=== PATIENT | male | born 1955 | race Caucasian/White ===

== ENCOUNTER 2019-04-22 16:13 | Observation (INO) | payer BC ==
[2019-04-22] MEDS ORDERED: methylPREDNISolone Sodium Succinate 125 MG/2 ML SDV IVPUSH ONE (16:16)
[2019-04-22] MEDS ORDERED: diphenhydrAMINE 50 MG/ML SDV IVPUSH ONE (16:16)
[2019-04-22] MEDS ORDERED: Famotidine 20 MG/2 ML SDV IVPUSH ONE (16:16)
[2019-04-22] MEDS ORDERED: EPINEPHrine 1 MG/ML SDV IM ONE ×2 (16:25→19:37)
--- NOTE | 2019-04-22 16:31 | EDM.PDOC ---
ED HPI GENERAL MEDICAL PROBLEM - General Chief Complaint: Allergic Reaction Stated Complaint: MOUTH SWOLLEN Time Seen by Provider: 04/22/19 16:20 Source of Information: Reports: Patient History Limitations: Reports: No Limitations - History of Present Illness INITIAL COMMENTS - FREE TEXT/NARRATIVE: This 63 year old male is admitted to the ED as a walk in with a chief complaint of swelling of his tongue that started around 12 noon today. He states that his doctor placed him on a new medication about one week ago (Lisinopril). The patient was asked several time and in different ways if he was having problems breathing or if he felt that his airway was feeling tight or trouble passing air through his trachea. The patient denies any chest pain or SOB. He insist that he is breathing fine. He denies any other problems at this time. Onset: Gradual Duration: Getting Worse (Tongue swelling) Location: Reports: Other (Tongue) Severity: Moderate (tongue swelling. He denies any problems of any kind breathing) Improves with: Reports: None Worsens with: Reports: None Associated Symptoms: Reports: No Other Symptoms tongue Pain Score (Numeric/FACES): 3 - Related Data Allergies Allergy/AdvReac Type Severity Reaction Status Date / Time No Known Allergies Allergy Verified 04/22/19 16:19 Home Meds: Home Meds Lisinopril/Hydrochlorothiazide [Lisinopril-Hctz 10-12.5 mg Tab] 1 tab PO DAILY 04/22/19 [History] [place]-3/DHA/Epa/Fish Oil [[place] 3 500 Softgel] 2 each PO DAILY 04/22/19 [History ] Past Medical History Cardiovascular History: Reports: Hypertension - Past Surgical History Musculoskeletal Surgical History: Reports: Other (See Below) Other Musculoskeletal Surgeries/Procedures:: Back sx Social & Family History - Family History Family Medical History: Noncontributory - Tobacco Use Smoking Status *Q: Current Every Day Smoker Years of Tobacco use: 40 Packs/Tins Daily: 1 - Recreational Drug Use Recreational Drug Use: No ED ROS ALLERGIC REACTION - Review of Systems Review Of Systems: See Below Constitutional: Reports: No Symptoms HEENT: Reports: Other (grossly swollen tongue) Cardiovascular: Reports: No Symptoms Endocrine: Reports: No Symptoms GI/Abdominal: Reports: No Symptoms : Reports: No Symptoms Musculoskeletal: Reports: No Symptoms Skin: Reports: No Symptoms Neurological: Reports: No Symptoms ED EXAM GENERAL NO PERIP PULSE - Physical Exam Exam: See Below Exam Limited By: No Limitations General Appearance: Alert, WD/WN, No Apparent Distress Ears: Normal External Exam, Normal Canal, Hearing Grossly Normal, Normal TMs Nose: Normal Inspection, Normal Mucosa, No Blood Throat/Mouth: Normal Lips, No Airway Compromise (He is able to talk without speaking except for the swelling of the tongue that is making speaking more difficult), Other (tongue is grossley swollen. I can just see the hard palet.) Head: No: Facial Swelling, Sinus Tenderness Neck: Normal Inspection, Other (No signs of induration or firmness of the submental area) Respiratory/Chest: No Respiratory Distress, Lungs Clear, Normal Breath Sounds, No Accessory Muscle Use, Chest Non-Tender Cardiovascular: Normal Peripheral Pulses, Regular Rate, Rhythm, No Edema, No JVD , No Murmur, No Rub GI/Abdominal: Normal Bowel Sounds, Soft, Non-Tender, No Distention, No Abnormal Bruit, No Mass (Male) Exam: Deferred Rectal (Males) Exam: Deferred Back Exam: Normal Inspection Extremities: Normal Inspection, Non-Tender, No Pedal Edema, Normal Capillary Refill Neurological: Alert, Oriented, CN II-XII Intact, Normal Reflexes, No Motor/ Sensory Deficits Skin Exam: Warm, Dry, Intact, Normal Color, No Rash Lymphatic: No Adenopathy Course - Vital Signs Text/Narrative:: I have re-evaluated this patient 12 times in the past three hours. The swelling of his tongue has gone down about 25-30%. He continues to deny any problems breathing or upper airway problems. I talked with Dr. Albarran at 7:28PM. I talked to her about giving the patient another 0.3mg of 1:1000 of epinephrine IM. She states that he should be fine in OBS/TELE. I agree as long as someone is watching him very closely. He will be admitted. The patient agrees with the plan. Last Recorded V/S: Last Vital Signs Temp 97.6 F 04/22/19 16:17 Pulse 81 04/22/19 19:14 Resp 16 04/22/19 19:14 BP 150/98 H 04/22/19 19:14 Pulse Ox 94 L 04/22/19 19:14 - Orders/Labs/Meds Labs: Laboratory Tests 04/22/19 04/22/19 Range/Units 16:24 16:24 WBC 11.68 H (4.0-11.0) K/uL RBC 4.83 (4.50-5.90) M/uL Hgb 14.6 (13.0-17.0) g/dL Hct 42.8 (38.0-50.0) % MCV 88.6 (80.0-98.0) fL MCH 30.2 (27.0-32.0) pg MCHC 34.1 (31.0-37.0) g/dL RDW Std Deviation 45.2 (28.0-62.0) fl RDW Coeff of [place] 14 (11.0-15.0) % Plt Count 370 (150-400) K/uL MPV 10.30 (7.40-12.00) fL Neut % (Auto) 64.7 (48.0-80.0) % Lymph % (Auto) 22.6 (16.0-40.0) % [place] % (Auto) 8.1 (0.0-15.0) % Eos % (Auto) 3.9 (0.0-7.0) % Baso % (Auto) 0.7 (0.0-1.5) % Neut # (Auto) 7.6 H (1.4-5.7) K/uL Lymph # (Auto) 2.6 H (0.6-2.4) K/uL [place] # (Auto) 1.0 H (0.0-0.8) K/uL Eos # (Auto) 0.5 (0.0-0.7) K/uL Baso # (Auto) 0.1 (0.0-0.1) K/uL Nucleated RBC % 0.0 /100WBC Nucleated RBCs # 0 K/uL Sodium 137 (136-148) mmol/L Potassium 3.7 (3.5-5.1) mmol/L Chloride 100 (98-107) mmol/L Carbon Dioxide 27.2 (21.0-32.0) mmol/L BUN 19 H (7.0-18.0) mg/dL Creatinine 1.0 (0.8-1.3) mg/dL Est Cr Clr Drug Dosing 78.07 mL/min Estimated GFR (MDRD) > 60.0 ml/min Glucose 74 (74-106) mg/dL Calcium 9.2 (8.5-10.1) mg/dL Magnesium 2.2 (1.8-2.4) mg/dL Total Bilirubin 0.3 (0.2-1.0) mg/dL AST 13 L (15-37) IU/L ALT 21 (14-63) IU/L Alkaline Phosphatase 95 (46-116) U/L Total Protein 7.9 (6.4-8.2) g/dL Albumin 4.0 (3.4-5.0) g/dL Globulin 3.9 (2.6-4.0) g/dL Albumin/Globulin Ratio 1.0 (0.9-1.6) Meds: Medications Discontinued Medications Generic Name Dose Route Start Last Admin Trade Name Freq PRN Reason Stop Dose Admin Diphenhydramine HCl 50 mg 04/22/19 16:16 04/22/19 16:23 Benadryl IVPUSH 04/22/19 16:17 50 mg ONETIME ONE Administration Epinephrine HCl 0.3 mg 04/22/19 16:25 04/22/19 16:35 Adrenalin IM 04/22/19 16:26 0.3 mg ONETIME ONE Administration Famotidine 20 mg 04/22/19 16:16 04/22/19 16:23 Pepcid IVPUSH 04/22/19 16:17 20 mg ONETIME ONE Administration Methylprednisolone Sodium Succinate 125 mg 04/22/19 16:16 04/22/19 16:23 Solu-Medrol IVPUSH 04/22/19 16:17 125 mg ONETIME ONE Administration Departure - Departure Time of Disposition: 19:38 Disposition: Refer to Observation Condition: Good Clinical Impression: Angioedema Qualifiers: Encounter type: initial encounter Qualified Code(s): T78.3XXA - Angioneurotic edema, initial encounter - Discharge Information *PRESCRIPTION DRUG MONITORING PROGRAM REVIEWED*: Yes *COPY OF PRESCRIPTION DRUG MONITORING REPORT IN PATIENT FLAQUITA: Yes Referrals: PCP,None [Primary Care Provider] - Sepsis Event Note - Evaluation Sepsis Screening Result: No Definite Risk - Focused Exam Vital Signs: Vital Signs Temp Pulse Resp BP Pulse Ox 04/22/19 19:14 81 16 150/98 H 94 L 04/22/19 17:20 92 130/77 94 L 04/22/19 16:17 97.6 F 91 16 164/94 H 96 Date Exam was Performed: 04/22/19 Time Exam was Performed: 19:32
[2019-04-22 17:28] LABS: BLOOD UREA NITROGEN,BUN 19 mg/dL (7.0-18.0); CARBON DIOXIDE,CO2 27.2 mmol/L (21.0-32.0); CHLORIDE,CL 100 mmol/L (98-107); GLUCOSE RANDOM 74 mg/dL (74-106); POTASSIUM,K 3.7 mmol/L (3.5-5.1); SODIUM,NA 137 mmol/L (136-148)
--- NOTE | 2019-04-22 18:05 | CR ---
Chest: Portable view of the chest was obtained. Comparison: No prior chest x-ray. Heart size is normal. Tortuous thoracic aorta is seen. Lungs are clear with no acute parenchymal change. Impression: 1. Nothing acute is seen on portable chest x-ray. Diagnostic code #1 This report was dictated in MDT
[2019-04-22] MEDS ORDERED: Albuterol/Ipratropium 3.0-0.5 MG/3 ML Neb Soln NEB PRN (20:07)
[2019-04-22] MEDS: methylPREDNISolone Sodium Succinate 40 MG/1 ML SDV IVPUSH SCH (23:53)
--- NOTE | 2019-04-23 08:27 | PCM.HP.2 ---
<Mt Young M - Last Filed: 04/23/19 09:38> H&P History of Present Illness - General Date of Service: 04/23/19 Admit Problem/Dx: Admission Diagnosis/Problem Admission Diagnosis/Problem Angioedema Source of Information: Patient History Limitations: Reports: No Limitations - History of Present Illness Initial Comments - Free Text/Narative: 63-year-old male presents with tongue swelling that started yesterday at noon. Patient has a PMH of hypertension. He reports that he ate a pretzel at a truck stop approximately 2 hours before. He was recently started on lisinopril 1 week ago. Patient reports that he did have a similar episode of acute tongue swelling approximately 1 month ago which was before he even started the lisinopril. Patient's dentist was contacted by his yesterday after he was admitted to hospital and dentist said patient could have reaction to glue in his dentures that he started wearing in February 2019 and was advised to stop wearing them. He has not introduced any new foods in his diet recently. Apart from lisinopril, no new medication changes. Patient denies fevers, chills, blurry vision, sore throat, cough, shortness of breath, trouble swallowing, chest pain, n/v/d, abdominal pain, blood in stool, blood in urine, numbness or tingling in extremities. In the ER, patient was given epinephrine, solumedrol, pepcid and benadryl. CBC, CMP and CXR were unremarkable. Patient admitted for further evaluation. tongue Pain Score (Numeric/FACES): 0 - Related Data Allergies/Adverse Reactions: Allergies Allergy/AdvReac Type Severity Reaction Status Date / Time No Known Allergies Allergy Verified 04/22/19 16:19 Home Medications: Home Meds [place]-3/DHA/Epa/Fish Oil [[place] 3 500 Softgel] 2 each PO DAILY 04/22/19 [History ] amLODIPine [Norvasc] 5 mg PO DAILY 30 Days #30 tab 04/23/19 [Rx] predniSONE [Prednisone] 40 mg PO DAILY 3 Days #6 tablet 04/23/19 [Rx] Past Medical History Cardiovascular History: Reports: Hypertension - Infectious Disease History Infectious Disease History: Reports: Chicken Pox, Measles - Past Surgical History Cardiovascular Surgical History: Reports: None Musculoskeletal Surgical History: Reports: Other (See Below) Other Musculoskeletal Surgeries/Procedures:: Back sx x3 ruptured disc Social & Family History - Family History Family Medical History: Noncontributory - Tobacco Use Smoking Status *Q: Current Every Day Smoker Years of Tobacco use: 40 Packs/Tins Daily: 1 Used Tobacco, but Quit: No Second Hand Smoke Exposure: Yes - Caffeine Use Caffeine Use: Reports: Coffee, Soda - Alcohol Use Days Per Week of Alcohol Use: 4 Number of Drinks Per Day: 3 Total Drinks Per Week: 12 Date of Last Drink: 04/21/19 Time of Last Drink: 16:30 - Recreational Drug Use Recreational Drug Use: No H&P Review of Systems - Review of Systems: Review Of Systems: Comprehensive ROS is negative, except as noted in HPI. Exam - Exam Exam: See Below - Vital Signs Vital Signs: Last Vital Signs Temp 97.7 F 04/23/19 04:00 Pulse 82 04/23/19 04:00 Resp 18 04/23/19 04:00 BP 118/65 04/23/19 04:00 Pulse Ox 92 L 04/23/19 04:00 Weight: 89.811 kg - Exam General: Alert, Oriented, Cooperative, Other (NAD) HEENT: Conjunctiva Clear, EOMI, Hearing Intact, Posterior Pharynx Clear, Pupils Equal, Pupils Reactive, Other (Tongue is non-edematous) Neck: Supple, Trachea Midline Lungs: Clear to Auscultation, Normal Respiratory Effort Cardiovascular: Regular Rate, Regular Rhythm GI/Abdominal Exam: Normal Bowel Sounds, Soft, Non-Tender, No Distention Extremities: Normal Inspection, No Pedal Edema Peripheral Pulses: 2+: Radial (L), Radial (R) Skin: Warm, Dry, Intact Neurological: Cranial Nerves Intact, Strength Equal Bilateral, Normal Speech, Normal Tone Neuro Extensive - Mental Status: Alert, Oriented x3, Normal Mood/Affect Psychiatric: Alert, Normal Affect, Normal Mood - Patient Data Lab Results Last 24 hrs: Laboratory Results - last 24 hr 04/22/19 04/22/19 04/23/19 Range/Units 16:24 16:24 06:03 WBC 11.68 H 11.57 H (4.0-11.0) K/uL RBC 4.83 4.78 (4.50-5.90) M/uL Hgb 14.6 14.3 (13.0-17.0) g/dL Hct 42.8 42.6 (38.0-50.0) % MCV 88.6 89.1 (80.0-98.0) fL MCH 30.2 29.9 (27.0-32.0) pg MCHC 34.1 33.6 (31.0-37.0) g/dL RDW Std Deviation 45.2 44.9 (28.0-62.0) fl RDW Coeff of [place] 14 14 (11.0-15.0) % Plt Count 370 382 (150-400) K/uL MPV 10.30 9.70 (7.40-12.00) fL Neut % (Auto) 64.7 88.2 H (48.0-80.0) % Lymph % (Auto) 22.6 9.9 L (16.0-40.0) % [place] % (Auto) 8.1 1.8 (0.0-15.0) % Eos % (Auto) 3.9 0.0 (0.0-7.0) % Baso % (Auto) 0.7 0.1 (0.0-1.5) % Neut # (Auto) 7.6 H 10.2 H (1.4-5.7) K/uL Lymph # (Auto) 2.6 H 1.2 (0.6-2.4) K/uL [place] # (Auto) 1.0 H 0.2 (0.0-0.8) K/uL Eos # (Auto) 0.5 0.0 (0.0-0.7) K/uL Baso # (Auto) 0.1 0.0 (0.0-0.1) K/uL Nucleated RBC % 0.0 0.0 /100WBC Nucleated RBCs # 0 0 K/uL Sodium 137 (136-148) mmol/L Potassium 3.7 (3.5-5.1) mmol/L Chloride 100 (98-107) mmol/L Carbon Dioxide 27.2 (21.0-32.0) mmol/L BUN 19 H (7.0-18.0) mg/dL Creatinine 1.0 (0.8-1.3) mg/dL Est Cr Clr Drug Dosing 78.07 mL/min Estimated GFR (MDRD) > 60.0 ml/min Glucose 74 (74-106) mg/dL Calcium 9.2 (8.5-10.1) mg/dL Magnesium 2.2 (1.8-2.4) mg/dL Total Bilirubin 0.3 (0.2-1.0) mg/dL AST 13 L (15-37) IU/L ALT 21 (14-63) IU/L Alkaline Phosphatase 95 (46-116) U/L Total Protein 7.9 (6.4-8.2) g/dL Albumin 4.0 (3.4-5.0) g/dL Globulin 3.9 (2.6-4.0) g/dL Albumin/Globulin Ratio 1.0 (0.9-1.6) Result Diagrams: 04/23/19 06:03 04/22/19 16:24 Sepsis Event Note - Evaluation Sepsis Screening Result: No Definite Risk - Focused Exam Vital Signs: Vital Signs Temp Pulse Resp BP Pulse Ox 04/23/19 04:00 97.7 F 82 18 118/65 92 L 04/23/19 00:00 98.8 F 79 18 134/79 93 L 04/22/19 20:53 98.3 F 89 18 132/78 96 04/22/19 20:46 97.8 F 88 18 141/85 H 94 L Date Exam was Performed: 04/23/19 Time Exam was Performed: 09:38 Problem List Initiated/Reviewed/Updated: Yes Orders Last 24hrs: Active Orders 24 hr Category Date Time Status Admission Status [Patient Status] [ADT] Stat ADT 04/22/19 20:06 Active Ambulate [RC] ASDIRECTED Care 04/22/19 20:07 Active Antiembolic Devices [RC] PER UNIT ROUTINE Care 04/22/19 20:08 Active Oxygen Therapy [RC] PRN Care 04/22/19 20:07 Active Pulse Oximetry [RC] CONTINUOUS Care 04/22/19 20:07 Active RT Aerosol Therapy [RC] ASDIRECTED Care 04/22/19 20:08 Active Telemetry Monitoring [Cardiac Monitoring] [RC] Q8H Care 04/22/19 20:55 Active VTE/DVT Education [RC] PER UNIT ROUTINE Care 04/22/19 20:07 Active Vital Signs [RC] Q4H Care 04/22/19 20:07 Active Albuterol/Ipratropium [DuoNeb 3.0-0.5 MG/3 ML] Med 04/22/19 20:07 Active 3 ml NEB Q4HRRT PRN Famotidine [Pepcid] Med 04/23/19 09:00 Active 20 mg IVPUSH DAILY methylPREDNISolone Sod Succ [Solu-MEDROL] Med 04/23/19 00:00 Active 40 mg IVPUSH Q8H Sequential Compression Device [OM.PC] Per Unit Routine Oth 04/22/19 20:07 Ordered Resuscitation Status Routine Resus Stat 04/22/19 20:07 Ordered Medication Orders Albuterol/Ipratropium (Duoneb 3.0-0.5 Mg/3 Ml) 3 ml NEB Q4HRRT PRN PRN Reason: Shortness Of Breath/wheezing Famotidine (Pepcid) 20 mg IVPUSH DAILY ESVIN Methylprednisolone Sodium Succinate (Solu-Medrol) 40 mg IVPUSH Q8H ESVIN Last Admin: 04/22/19 23:53 Dose: 40 mg Assessment/Plan Comment:: Assessment and Plan: 1. Angioedema secondary to drug reaction vs dentures: - Patient admitted to med/surg obs. Patient started on IV solumedrol 40 mg q8 and IV famotidine 20 mg qd. Duonebs q4 prn. Patient reports that his tongue swelling has improved significantly since yesterday and has now returned to his baseline. He was discharged this morning in stable condition with instructions to discontinue lisinopril and his dentures. Patient started on amlodipine 5 mg qd and given script for prednisone 40 mg qd x 3 days. Advised to follow-up with his PCP for blood pressure monitoring and also his dentist on discharge. <Andria Albarran - Last Filed: 05/06/19 15:19> H&P History of Present Illness - General Admit Problem/Dx: Admission Diagnosis/Problem Admission Diagnosis/Problem Angioedema Exam - Vital Signs Vital Signs: Last Vital Signs Temp 36.5 C 04/23/19 07:40 Pulse 82 04/23/19 07:40 Resp 18 04/23/19 07:40 BP 121/74 04/23/19 07:40 Pulse Ox 94 L 04/23/19 07:40 - Patient Data Result Diagrams: 04/23/19 06:03 04/22/19 16:24 Assessment/Plan Comment:: I performed history and physical exam of this patient independently and Agree with the above outlined management plan that was discussed with the resident in detail.
[2019-04-23] MEDS: methylPREDNISolone Sodium Succinate 40 MG/1 ML SDV IVPUSH SCH (08:36)
[2019-04-23] MEDS ORDERED: Famotidine 20 MG/2 ML SDV IVPUSH SCH (09:00)
== END 2019-04-23 11:45 | disposition home or self-care (01) ==
LOC: MW.ED 16:13 → MW.MS 20:06
PROVIDERS: ADMIT Student in an Organized Health Care Education/Training Program; ATTEND Student in an Organized Health Care Education/Training Program
DX: T78.3XXA Angioneurotic edema, initial encounter (principal); I10 Essential (primary) hypertension; F17.210 Nicotine dependence, cigarettes, uncomplicated; Z79.899 Other long term (current) drug therapy
CPT/HCPCS: 36415; 71045; 80053; 83735; 85025; 96372; 96374; 96375; 99284; J0171; J1200; J2920; J2930; S0028; 96376; G0378; J3490

== ENCOUNTER 2019-05-31 11:32 | Observation (INO) | payer BC ==
--- NOTE | 2019-05-31 12:18 | EDM.PDOC ---
ED HPI GENERAL MEDICAL PROBLEM - General Chief Complaint: General Stated Complaint: SWOLLEN TONGUE Time Seen by Provider: 05/31/19 12:18 Source of Information: Reports: Patient History Limitations: Reports: No Limitations - History of Present Illness INITIAL COMMENTS - FREE TEXT/NARRATIVE: This 63 year old male presents to the ED today with a chief complaint of gross swelling of the right side of his tongue at 9:00AM. He had a similar problem on April 22, 2019 at which time he was admitted for a day and discharged with a Rx for Prednisone for three days. He states that his tongue went totally down. The cause was never found. He states that the only difference is that this time the swelling started on the right side of his tongue. As like before, he denies any trouble breathing or any airway problems. Onset: Today (9:00 AM) denies pain Pain Score (Numeric/FACES): 0 - Related Data Allergies Allergy/AdvReac Type Severity Reaction Status Date / Time [id number] Reductase AdvReac Unknown Facial Unverified 05/31/19 12:00 Inhibitor Swelling Home Meds: Home Meds [place]-3/DHA/Epa/Fish Oil [[place] 3 500 Softgel] 2 each PO DAILY 04/22/19 [History ] amLODIPine [Norvasc] 5 mg PO DAILY 30 Days #30 tab 04/23/19 [Rx] predniSONE [Prednisone] 40 mg PO DAILY 3 Days #6 tablet 04/23/19 [Rx] Past Medical History - Past Health History Medical/Surgical History: Denies Medical/Surgical History Cardiovascular History: Reports: Hypertension Psychiatric History: Reports: None Hematologic History: Reports: None Immunologic History: Reports: None Oncologic (Cancer) History: Reports: None - Infectious Disease History Infectious Disease History: Reports: None - Past Surgical History Cardiovascular Surgical History: Reports: None Musculoskeletal Surgical History: Reports: Other (See Below) Other Musculoskeletal Surgeries/Procedures:: Back sx x3 ruptured disc Social & Family History - Family History Family Medical History: Noncontributory - Tobacco Use Smoking Status *Q: Current Every Day Smoker Years of Tobacco use: 45 Packs/Tins Daily: 0.5 - Caffeine Use Caffeine Use: Reports: Coffee - Recreational Drug Use Recreational Drug Use: No ED ROS GENERAL - Review of Systems Review Of Systems: See Below Constitutional: Reports: No Symptoms HEENT: Reports: Other (tongue swelling) Respiratory: Reports: No Symptoms Cardiovascular: Reports: No Symptoms Endocrine: Reports: No Symptoms GI/Abdominal: Reports: No Symptoms : Reports: No Symptoms Musculoskeletal: Reports: No Symptoms Skin: Reports: No Symptoms Neurological: Reports: No Symptoms ED EXAM, GENERAL - Physical Exam Exam: See Below Exam Limited By: No Limitations General Appearance: Alert, WD/WN, No Apparent Distress Ears: Normal External Exam, Normal Canal, Normal TMs Nose: Normal Inspection, Normal Mucosa Throat/Mouth: Normal Voice, No Airway Compromise, Other (the right side of his tongue is grossly swollen. The left side of the tongue is only slightly swollen.) Head: Atraumatic, Normocephalic Neck: Normal Inspection, Supple, Non-Tender Respiratory/Chest: No Respiratory Distress, Lungs Clear, Normal Breath Sounds, Chest Non-Tender Cardiovascular: Normal Peripheral Pulses, Regular Rate, Rhythm, No Edema, No Murmur GI/Abdominal: Normal Bowel Sounds, Soft, Non-Tender (Male) Exam: Deferred Rectal (Males) Exam: Deferred Back Exam: Normal Inspection, Full Range of Motion Extremities: Normal Inspection Neurological: Alert, Oriented (times 4), CN II-XII Intact, Normal Reflexes, No Motor/Sensory Deficits Psychiatric: Normal Affect Skin Exam: Warm, Dry, Intact, Normal Color, No Rash Lymphatic: No Adenopathy Course - Vital Signs Text/Narrative:: The patient tongue has improved but is still very swollen. I talked with Dr. Albarran regarding admission for further observation. She is will to admit him to OBS/TELE and has requested that he receives epinephrine 0.3mg of a 1/1,000 IM. I discussed admission to the patient and he agrees with the admission plan. Last Recorded V/S: Last Vital Signs Temp 97.0 F 05/31/19 11:55 Pulse 74 05/31/19 15:17 Resp 17 05/31/19 15:17 BP 155/86 H 05/31/19 15:17 Pulse Ox 97 05/31/19 15:17 - Orders/Labs/Meds Orders: Active Orders 24 hr Category Date Time Status B-TYPE NATRIURETIC PEPTIDE,BNP [CHEM] Stat Lab 05/31/19 15:29 Ordered CBC WITH AUTO DIFF [HEME] Stat Lab 05/31/19 15:16 Ordered Sodium Chloride 0.9% [Normal Saline] 500 ml Med 05/31/19 13:00 Active IV .BOLUS Medication Orders Sodium Chloride (Normal Saline) 500 mls @ 500 mls/hr IV .BOLUS ESVIN Last Admin: 05/31/19 13:10 Dose: 500 mls/hr Meds: Medications Generic Name Dose Route Start Last Admin Trade Name oY PRN Reason Stop Dose Admin Sodium Chloride 500 mls @ 500 mls/hr 05/31/19 13:00 05/31/19 13:10 Normal Saline IV 500 mls/hr .BOLUS ESVIN Administration Discontinued Medications Generic Name Dose Route Start Last Admin Trade Name Yo PRN Reason Stop Dose Admin Diphenhydramine HCl 25 mg 05/31/19 12:50 05/31/19 13:12 Benadryl IVPUSH 05/31/19 12:51 25 mg ONETIME ONE Administration Epinephrine HCl 0.3 mg 05/31/19 15:27 Adrenalin IM 05/31/19 15:28 ONETIME ONE Famotidine 20 mg 05/31/19 12:49 05/31/19 13:11 Pepcid PO 05/31/19 12:50 20 mg ONETIME ONE Administration Prednisone 60 mg 05/31/19 12:48 05/31/19 13:11 Prednisone PO 05/31/19 12:49 60 mg ONETIME ONE Administration Departure - Departure Time of Disposition: 15:34 Disposition: Refer to Observation Condition: Fair Clinical Impression: Tongue swelling Angioedema Qualifiers: Encounter type: subsequent encounter Qualified Code(s): T78.3XXD - Angioneurotic edema, subsequent encounter - Discharge Information *PRESCRIPTION DRUG MONITORING PROGRAM REVIEWED*: Yes *COPY OF PRESCRIPTION DRUG MONITORING REPORT IN PATIENT FLAQUITA: Yes Referrals: Maris Pearce NP [Primary Care Provider] - Sepsis Event Note - Evaluation Sepsis Screening Result: No Definite Risk - Focused Exam Vital Signs: Vital Signs Temp Pulse Resp BP Pulse Ox 05/31/19 15:17 74 17 155/86 H 97 05/31/19 11:55 97.0 F 74 16 180/107 H 98 Date Exam was Performed: 05/31/19 Time Exam was Performed: 15:30 - My Orders Last 24 Hours: My Active Orders 05/31/19 13:00 Sodium Chloride 0.9% [Normal Saline] 500 ml IV .BOLUS 05/31/19 15:16 CBC WITH AUTO DIFF [HEME] Stat 05/31/19 15:29 B-TYPE NATRIURETIC PEPTIDE,BNP [CHEM] Stat - Assessment/Plan Last 24 Hours: My Active Orders 05/31/19 13:00 Sodium Chloride 0.9% [Normal Saline] 500 ml IV .BOLUS 05/31/19 15:16 CBC WITH AUTO DIFF [HEME] Stat 05/31/19 15:29 B-TYPE NATRIURETIC PEPTIDE,BNP [CHEM] Stat
[2019-05-31] MEDS ORDERED: predniSONE 10 MG Tab PO ONE (12:48)
[2019-05-31] MEDS ORDERED: Famotidine 20 MG Tab PO ONE (12:49)
[2019-05-31] MEDS ORDERED: diphenhydrAMINE 50 MG/ML SDV IVPUSH ONE (12:50)
[2019-05-31] MEDS ORDERED: Sodium Chloride 0.9% 500 ML IV SCH (13:00)
[2019-05-31] MEDS ORDERED: EPINEPHrine 1 MG/ML SDV IM ONE (15:27)
[2019-05-31 16:50] LABS: BLOOD UREA NITROGEN,BUN 11 mg/dL (7.0-18.0); CARBON DIOXIDE,CO2 29.9 mmol/L (21.0-32.0); CHLORIDE,CL 104 mmol/L (98-107); GLUCOSE RANDOM 106 mg/dL (74-106); POTASSIUM,K 4.6 mmol/L (3.5-5.1); SODIUM,NA 141 mmol/L (136-148)
[2019-05-31] MEDS ORDERED: Lactated Ringers 1,000 ML IV SCH (17:15)
[2019-05-31] MEDS: diphenhydrAMINE 50 MG/ML SDV IVPUSH SCH ×2 (18:14→23:04)
--- NOTE | 2019-05-31 19:27 | PCM.HP.2 ---
H&P History of Present Illness - General Date of Service: 05/31/19 Admit Problem/Dx: Admission Diagnosis/Problem Admission Diagnosis/Problem Tongue swelling - History of Present Illness Initial Comments - Free Text/Narative: This 63 year old male presents to the ED today with a chief complaint of swelling of the right side of his tongue that started this AM while he was at home resting. He had a similar problem on April 22, 2019 at which time he was admitted for a day and discharged with a Rx for Prednisone for three days. He had no episodes ever since. It was attributed to his denture cleaning solution vs the denture glue, he had stopped using those products. He states he was also told he might be allergic to the acrylic in the denture teeth. He denies any trouble breathing or any airway problems. He has an Epi pen at home. Patient received steroids, Benadryl, epinephrine in the ER, and was admitted to hospital for overnight observation. Onset of Symptoms: Reports: Today, Sudden Duration of Symptoms: Reports: Hour(s): Location: Reports: Head Severity: Moderate Improves with: Reports: None Worsens with: Reports: None Associated Symptoms: Denies: Confusion, Chest Pain, Fever/Chills, Headaches, Loss of Appetite, Seizure, Shortness of Breath denies pain Pain Score (Numeric/FACES): 0 - Related Data Allergies/Adverse Reactions: Allergies Allergy/AdvReac Type Severity Reaction Status Date / Time [id number] Reductase AdvReac Unknown Facial Verified 05/31/19 17:33 Inhibitor Swelling Home Medications: Home Meds [place]-3/DHA/Epa/Fish Oil [[place] 3 500 Softgel] 1 each PO BID 04/22/19 [History] Aspirin [Aspirin EC] 81 mg PO BEDTIME 05/31/19 [History] predniSONE [Prednisone] 20 mg PO DAILY #5 tablet 06/01/19 [Rx] Past Medical History - Past Health History Medical/Surgical History: Denies Medical/Surgical History Cardiovascular History: Reports: Hypertension Respiratory History: Reports: Sleep Apnea Other Respiratory History: on Home CPAP Psychiatric History: Reports: None Hematologic History: Reports: None Immunologic History: Reports: None Oncologic (Cancer) History: Reports: None Dermatologic History: Reports: Angiodema - Infectious Disease History Infectious Disease History: Reports: None - Past Surgical History Cardiovascular Surgical History: Reports: None Respiratory Surgical History: Reports: None Musculoskeletal Surgical History: Reports: Other (See Below) Other Musculoskeletal Surgeries/Procedures:: Back sx x3 ruptured disc Social & Family History - Family History Family Medical History: Noncontributory - Tobacco Use Smoking Status *Q: Current Every Day Smoker Years of Tobacco use: 45 Packs/Tins Daily: 1 Month/Year Tobacco Last Used: Current Second Hand Smoke Exposure: No - Caffeine Use Caffeine Use: Reports: Coffee, Soda, Tea - Alcohol Use Days Per Week of Alcohol Use: 3 Number of Drinks Per Day: 3 Total Drinks Per Week: 9 Date of Last Drink: 05/29/19 Time of Last Drink: 18:00 - Recreational Drug Use Recreational Drug Use: No H&P Review of Systems - Review of Systems: Review Of Systems: See Below General: Denies: Fever, Chills HEENT: Reports: Other (toungue swelling ). Denies: Glasses, Headaches, Rhinitis , Post Nasal Drip, Sore Throat, Vertigo, Visual Changes Cardiovascular: Denies: Chest Pain, Palpitations Gastrointestinal: Denies: Abdominal Pain, Anorexia, Decreased Appetite, Nausea, Stool Incontinence Genitourinary: Denies: Dysuria, Frequency, Burning Musculoskeletal: Denies: Neck Pain, Shoulder Pain, Arm Pain Skin: Denies: Cyanosis, Jaundice, Mottled Psychiatric: Denies: Confusion, Depression, Mood Lability Exam - Exam Exam: See Below - Vital Signs Vital Signs: Last Vital Signs Temp 36.2 C 05/31/19 16:51 Pulse 76 05/31/19 16:51 Resp 16 05/31/19 16:51 BP 147/85 H 05/31/19 16:51 Pulse Ox 96 05/31/19 16:51 Weight: 92.1 kg - Exam General: Alert, Oriented HEENT: Conjunctiva Clear, Mucosa Moist & [place], Other (right side of the toungue is swollen ) Neck: Supple, Trachea Midline Lungs: Clear to Auscultation, Normal Respiratory Effort Cardiovascular: Regular Rate, Regular Rhythm, Normal S1, Normal S2 - Patient Data Lab Results Last 24 hrs: Laboratory Results - last 24 hr 05/31/19 05/31/19 05/31/19 Range/Units 15:24 15:24 15:24 WBC 18.42 H (4.0-11.0) K/uL RBC 4.90 (4.50-5.90) M/uL Hgb 14.6 (13.0-17.0) g/dL Hct 44.4 (38.0-50.0) % MCV 90.6 (80.0-98.0) fL MCH 29.8 (27.0-32.0) pg MCHC 32.9 (31.0-37.0) g/dL RDW Std Deviation 45.9 (28.0-62.0) fl RDW Coeff of [place] 14 (11.0-15.0) % Plt Count 346 (150-400) K/uL MPV 9.40 (7.40-12.00) fL Neut % (Auto) 87.4 H (48.0-80.0) % Lymph % (Auto) 7.8 L (16.0-40.0) % [place] % (Auto) 3.3 (0.0-15.0) % Eos % (Auto) 1.2 (0.0-7.0) % Baso % (Auto) 0.3 (0.0-1.5) % Neut # (Auto) 16.1 H (1.4-5.7) K/uL Lymph # (Auto) 1.4 (0.6-2.4) K/uL [place] # (Auto) 0.6 (0.0-0.8) K/uL Eos # (Auto) 0.2 (0.0-0.7) K/uL Baso # (Auto) 0.1 (0.0-0.1) K/uL Nucleated RBC % 0.0 /100WBC Nucleated RBCs # 0 K/uL Sodium 141 (136-148) mmol/L Potassium 4.6 (3.5-5.1) mmol/L Chloride 104 (98-107) mmol/L Carbon Dioxide 29.9 (21.0-32.0) mmol/L BUN 11 (7.0-18.0) mg/dL Creatinine 1.1 (0.8-1.3) mg/dL Est Cr Clr Drug Dosing 70.97 mL/min Estimated GFR (MDRD) > 60.0 ml/min Glucose 106 (74-106) mg/dL Calcium 8.8 (8.5-10.1) mg/dL B-Natriuretic Peptide 14 (<100) PG/ML Result Diagrams: 06/01/19 06:08 05/31/19 15:24 Sepsis Event Note - Evaluation Sepsis Screening Result: No Definite Risk - Focused Exam Vital Signs: Vital Signs Temp Pulse Resp BP Pulse Ox 05/31/19 16:51 36.2 C 76 16 147/85 H 96 05/31/19 15:17 74 17 155/86 H 97 05/31/19 11:55 36.1 C 74 16 180/107 H 98 Date Exam was Performed: 06/01/19 Time Exam was Performed: 12:14 - Problem List (1) Angioedema SNOMED Code(s): 39122717 ICD Code: T78.3XXA - ANGIONEUROTIC EDEMA, INITIAL ENCOUNTER Status: Acute Qualifiers: Encounter type: subsequent encounter Qualified Code(s): T78.3XXD - Angioneurotic edema, subsequent encounter Problem List Initiated/Reviewed/Updated: Yes Orders Last 24hrs: Active Orders 24 hr Category Date Time Status Admission Status [Patient Status] [ADT] Stat ADT 05/31/19 15:36 Active Ambulate [RC] ASDIRECTED Care 05/31/19 16:42 Active Oxygen Therapy [RC] ASDIRECTED Care 05/31/19 16:51 Active Pulse Oximetry [RC] ASDIRECTED Care 05/31/19 16:50 Active Telemetry Monitoring [Cardiac Monitoring] [RC] . Care 05/31/19 16:28 Active DIRECTED Vital Signs [RC] Q4H Care 05/31/19 20:00 Active Nothing per Oral Now Diet [DIET] Diet 06/01/19 Breakfast Active Famotidine [Pepcid] Med 05/31/19 21:00 Active 20 mg PO BID Lactated Ringers [Ringers, Lactated] 1,000 ml Med 05/31/19 17:15 Active IV ASDIRECTED Sodium Chloride 0.9% [Normal Saline] 500 ml Med 05/31/19 13:00 Active IV .BOLUS diphenhydrAMINE [Benadryl] Med 05/31/19 17:00 Active 25 mg IVPUSH Q6H methylPREDNISolone Sod Succ [Solu-MEDROL] Med 05/31/19 22:00 Active 60 mg IVPUSH Q12H Medication Orders Diphenhydramine HCl (Benadryl) 25 mg IVPUSH Q6H [facility] Last Admin: 05/31/19 18:14 Dose: 25 mg Famotidine (Pepcid) 20 mg PO BID [facility] Sodium Chloride (Normal Saline) 500 mls @ 500 mls/hr IV .BOLUS [facility] Last Admin: 05/31/19 13:10 Dose: 500 mls/hr Lactated Ringer's (Ringers, Lactated) 1,000 mls @ 125 mls/hr IV ASDIRECTED [facility] Last Admin: 05/31/19 18:15 Dose: 125 mls/hr Methylprednisolone Sodium Succinate (Solu-Medrol) 60 mg IVPUSH Q12H [facility] Assessment/Plan Comment:: 63 y/o Admitted for Angioedema, unsure of trigger, could be idiopathic Will start IV steroids, Benadryl, and Pepcid Airway is patent, swelling has improved Start soft diet continue to monitor overnight Possible dc tomorrow
[2019-05-31] MEDS: Famotidine 20 MG Tab PO SCH (21:31)
[2019-05-31] MEDS: methylPREDNISolone Sodium Succinate 125 MG/2 ML SDV IVPUSH SCH (21:32)
[2019-06-01] MEDS: diphenhydrAMINE 50 MG/ML SDV IVPUSH SCH ×2 (05:08→10:18)
[2019-06-01] MEDS: Famotidine 20 MG Tab PO SCH (09:17)
[2019-06-01] MEDS: methylPREDNISolone Sodium Succinate 125 MG/2 ML SDV IVPUSH SCH (09:55)
--- NOTE | 2019-06-01 10:07 | PCM.DCSUM1 ---
Discharge Summary - Hospital Course HPI Initial Comments: This 63 year old male presents to the ED today with a chief complaint of swelling of the right side of his tongue that started this AM while he was at home resting. He had a similar problem on April 22, 2019 at which time he was admitted for a day and discharged with a Rx for Prednisone for three days. He had no episodes ever since. It was attributed to his denture cleaning solution vs the denture glue, he had stopped using those products. He states he was also told he might be allergic to the acrylic in the denture teeth. He denies any trouble breathing or any airway problems. He has an Epi pen at home. Patient received steroids, Benadryl, epinephrine in the ER, and was admitted to hospital for overnight observation. Patient was started on IV steroids, IV Benedryl and pepcid, next AM patients swelling had resolved, he was keen to leave [facility]. His tele around 845 am showed frequent PVCs, his mg was checked which was normal, his PVCs resolved after 20 min. Patient was informed about his borderline HTN and PVCs, patient wasn't keen on starting any meds for his HTN as of now, Patient was medically stable for dc, He was recommended to fu with his PCP and check his BP regularly at home. - Discharge Data Discharge Date: 06/01/19 Discharge Disposition: Home, Self-Care 01 Condition: Fair - Referral to Home Health Primary Care Physician: Maris Pearce NP - Discharge Diagnosis/Problem(s) (1) Angioedema SNOMED Code(s): 06526279 ICD Code: T78.3XXA - ANGIONEUROTIC EDEMA, INITIAL ENCOUNTER Status: Acute Qualifiers: Encounter type: subsequent encounter Qualified Code(s): T78.3XXD - Angioneurotic edema, subsequent encounter - Patient Instructions Diet: Heart Healthy Diet Activity: As Tolerated Driving: May Drive Today Showering/Bathing: May Shower Notify Provider of: Fever, Increased Pain, Swelling and Redness, Drainage, Nausea and/or Vomiting - Discharge Plan *PRESCRIPTION DRUG MONITORING PROGRAM REVIEWED*: Yes *COPY OF PRESCRIPTION DRUG MONITORING REPORT IN PATIENT FLAQUITA: Yes Prescriptions/Med Rec: predniSONE [Prednisone] 20 mg PO DAILY #5 tablet Home Medications: Home Meds Rule-3/DHA/Epa/Fish Oil [[place] 3 500 Softgel] 1 each PO BID 04/22/19 [History] Aspirin [Aspirin EC] 81 mg PO BEDTIME 05/31/19 [History] predniSONE [Prednisone] 20 mg PO DAILY #5 tablet 06/01/19 [Rx] Patient Handouts: Angioedema, [id number], Metoprolol tablets, Prednisone tablets Referrals: Maris Pearce, [employer] [Primary Care Provider] - - Discharge Summary/Plan Comment DC Time >30 min.: No - Patient Data Vitals - Most Recent: Last Vital Signs Temp 37.3 C 06/01/19 07:20 Pulse 83 06/01/19 07:20 Resp 18 06/01/19 07:20 BP 135/71 06/01/19 07:20 Pulse Ox 95 06/01/19 07:20 Weight - Most Recent: 92.1 kg I&O - Last 24 hours: Intake & Output 05/31/19 06/01/19 06/01/19 22:59 06:59 14:59 Intake Total 186 1280 Output Total 850 Balance 186 430 Lab Results - Last 24 hrs: Laboratory Results - last 24 hr 05/31/19 05/31/19 05/31/19 Range/Units 15:24 15:24 15:24 WBC 18.42 H (4.0-11.0) K/uL RBC 4.90 (4.50-5.90) M/uL Hgb 14.6 (13.0-17.0) g/dL Hct 44.4 (38.0-50.0) % MCV 90.6 (80.0-98.0) fL MCH 29.8 (27.0-32.0) pg MCHC 32.9 (31.0-37.0) g/dL RDW Std Deviation 45.9 (28.0-62.0) fl RDW Coeff of [place] 14 (11.0-15.0) % Plt Count 346 (150-400) K/uL MPV 9.40 (7.40-12.00) fL Neut % (Auto) 87.4 H (48.0-80.0) % Lymph % (Auto) 7.8 L (16.0-40.0) % [place] % (Auto) 3.3 (0.0-15.0) % Eos % (Auto) 1.2 (0.0-7.0) % Baso % (Auto) 0.3 (0.0-1.5) % Neut # (Auto) 16.1 H (1.4-5.7) K/uL Lymph # (Auto) 1.4 (0.6-2.4) K/uL [place] # (Auto) 0.6 (0.0-0.8) K/uL Eos # (Auto) 0.2 (0.0-0.7) K/uL Baso # (Auto) 0.1 (0.0-0.1) K/uL Nucleated RBC % 0.0 /100WBC Nucleated RBCs # 0 K/uL Sodium 141 (136-148) mmol/L Potassium 4.6 (3.5-5.1) mmol/L Chloride 104 (98-107) mmol/L Carbon Dioxide 29.9 (21.0-32.0) mmol/L BUN 11 (7.0-18.0) mg/dL Creatinine 1.1 (0.8-1.3) mg/dL Est Cr Clr Drug Dosing 70.97 mL/min Estimated GFR (MDRD) > 60.0 ml/min Glucose 106 (74-106) mg/dL Calcium 8.8 (8.5-10.1) mg/dL Magnesium (1.8-2.4) mg/dL B-Natriuretic Peptide 14 (<100) PG/ML 06/01/19 06/01/19 Range/Units 06:08 06:08 WBC 13.13 H (4.0-11.0) K/uL RBC 4.76 (4.50-5.90) M/uL Hgb 14.0 (13.0-17.0) g/dL Hct 42.3 (38.0-50.0) % MCV 88.9 (80.0-98.0) fL MCH 29.4 (27.0-32.0) pg MCHC 33.1 (31.0-37.0) g/dL RDW Std Deviation 44.6 (28.0-62.0) fl RDW Coeff of [place] 14 (11.0-15.0) % Plt Count 362 (150-400) K/uL MPV 9.70 (7.40-12.00) fL Neut % (Auto) 88.6 H (48.0-80.0) % Lymph % (Auto) 9.2 L (16.0-40.0) % [place] % (Auto) 2.1 (0.0-15.0) % Eos % (Auto) 0.0 (0.0-7.0) % Baso % (Auto) 0.1 (0.0-1.5) % Neut # (Auto) 11.6 H (1.4-5.7) K/uL Lymph # (Auto) 1.2 (0.6-2.4) K/uL [place] # (Auto) 0.3 (0.0-0.8) K/uL Eos # (Auto) 0.0 (0.0-0.7) K/uL Baso # (Auto) 0.0 (0.0-0.1) K/uL Nucleated RBC % 0.0 /100WBC Nucleated RBCs # 0 K/uL Sodium (136-148) mmol/L Potassium (3.5-5.1) mmol/L Chloride (98-107) mmol/L Carbon Dioxide (21.0-32.0) mmol/L BUN (7.0-18.0) mg/dL Creatinine (0.8-1.3) mg/dL Est Cr Clr Drug Dosing mL/min Estimated GFR (MDRD) ml/min Glucose (74-106) mg/dL Calcium (8.5-10.1) mg/dL Magnesium 2.1 (1.8-2.4) mg/dL B-Natriuretic Peptide (<100) PG/ML Med Orders - Current: Current Medications Diphenhydramine HCl (Benadryl) 25 mg IVPUSH Q6H [facility] Last Admin: 06/01/19 05:08 Dose: 25 mg Famotidine (Pepcid) 20 mg PO BID [facility] Last Admin: 06/01/19 09:17 Dose: 20 mg Sodium Chloride (Normal Saline) 500 mls @ 500 mls/hr IV .BOLUS [facility] Last Admin: 05/31/19 13:10 Dose: 500 mls/hr Methylprednisolone Sodium Succinate (Solu-Medrol) 60 mg IVPUSH Q12H [facility] Last Admin: 06/01/19 09:55 Dose: 60 mg Discontinued Medications Diphenhydramine HCl (Benadryl) 25 mg IVPUSH ONETIME ONE Stop: 05/31/19 12:51 Last Admin: 05/31/19 13:12 Dose: 25 mg Epinephrine HCl (Adrenalin) 0.3 mg IM ONETIME ONE Stop: 05/31/19 15:28 Last Admin: 05/31/19 15:37 Dose: 0.3 mg Famotidine (Pepcid) 20 mg PO ONETIME ONE Stop: 05/31/19 12:50 Last Admin: 05/31/19 13:11 Dose: 20 mg Lactated Ringer's (Ringers, Lactated) 1,000 mls @ 125 mls/hr IV ASDIRECTED [facility] Last Admin: 05/31/19 18:15 Dose: 125 mls/hr Prednisone (Prednisone) 60 mg PO ONETIME ONE Stop: 05/31/19 12:49 Last Admin: 05/31/19 13:11 Dose: 60 mg
== END 2019-06-01 11:03 | disposition home or self-care (01) ==
LOC: MW.ED 11:32 → MW.MS 15:36
PROVIDERS: ADMIT Student in an Organized Health Care Education/Training Program; ATTEND Student in an Organized Health Care Education/Training Program
DX: T78.3XXD Angioneurotic edema, subsequent encounter (principal); I49.3 Ventricular premature depolarization; I10 Essential (primary) hypertension; F17.210 Nicotine dependence, cigarettes, uncomplicated; Z79.82 Long term (current) use of aspirin; Z88.8 Allergy status to other drugs, medicaments and biological substances; Z79.899 Other long term (current) drug therapy
CPT/HCPCS: 36415; 80048; 83735; 83880; 85025; 96372; 96374; 99284; A9270; J0171; J1200; J2930; J7040; J7120; 96361; 96375; 96376; G0378